=== PATIENT | male | born 1960 | race Caucasian/White ===

== ENCOUNTER 2017-05-20 15:32 | Inpatient (IN) | payer OTHER ==
[~2017-05-20] VITALS: Ht 177.8 cm; Wt 140.0 kg
[~2017-05-20 15:32] MED LIST: AMLODIPINE BESYL5 MG PO; ANTIVERT25 MG PO; ASPIR 8181 M1 PO; ASPIRIN325 MG PO; ASPIRIN81 M2 PO; ATORVASTATIN CA20 MG PO; BUSPAR10 MG PO; CLINDAMYCIN HC300 MG PO; DIAZEPAM5 MG PO; DITROPAN5 MG PO; DOK PLUS TABLE1 EACH PO; ENOXAPARIN40 MG/0.4 SC; HYZAAR 100-21 TABLET PO; K-DUR20 MEQ PO; LIPITOR40 MG PO; LOSARTAN-HCTZ1 EAC1 PO; MECLIZINE HCL25 MG PO; NICODERM CQ1 EAC1 TD; NORVASC5 MG PO; PLAVIX75 MG PO; RANITIDINE HCL150 MG PO; RANITIDINE HCL300 MG PO; VIIBRYD40 MG PO
[2017-05-20 17:28] LABS: EOSINOPHIL (%) 1.1 % (0-5); EOSINOPHIL COUNT 0.1 K/uL (0-0.3); HEMATOCRIT 47.7 % (38.0-50.0); IMMATURE GRANULOCYTE (%) 0.2 % (0.0-0.7); INSTRUMENT ABS NEUTROPHIL CT 4.5 K/uL; LYMPHOCYTE COUNT 3.2 K/uL (1.0-2.8); MCH 27.8 PG (29.0-34.0); MCHC 32.3 G/DL (30.0-36.0); MCV 86.1 FL (86-99); MEAN PLAT.VOLUME 10.6 uM^3 (9.0-12.4); MONOCYTE (%) 10.8 % (3-12); MONOCYTE COUNT 0.9 K/uL (0-0.8); NEUTROPHIL (%) 51.1 % (45-76); NEUTROPHIL COUNT 4.5 K/uL (1.8-6.4); PLATELET COUNT 227 K/uL (156-360); RBC DIS.WIDTH-CV 13.5 % (11.8-14.6); RBC DIS.WIDTH-SD 42.5 % (39-53); RED BLOOD COUNT 5.54 M/uL (4.00-5.50); WHITE BLOOD COUNT 8.7 K/uL (4.1-10.2)
[2017-05-20 17:37] LABS: CHLORIDE 105 mEq/L (99-109); POTASSIUM 3.7 mEq/L (3.7-5.4); SODIUM 143 mEq/L (136-147)
[2017-05-20 17:38] LABS: GLUCOSE 95 mg/dL (70-99)
[2017-05-20 17:40] LABS: ANION GAP 10 MEQ/L (2-14)
[2017-05-20 17:42] LABS: GFR ESTIMATE (CALCULATED) 56 mL/min/; INTER. NORMALIZED RATIO 1.1; PROTHROMBIN TIME 11.4 (9.2-11.2); PTT 26.8 (25-32)
[2017-05-20 17:43] LABS: UREA NITROGEN (BUN) 15 mg/dL (9-23)
[2017-05-20 18:14] LABS: HDL CHOLESTEROL 22 MG/DL (Desirable>=40); LDL CHOLESTEROL 41 mg/dL (Desirable<100); NON-HDL CHOLESTEROL 72 mg/dL (Desirable<160); SAMPLE HEMOLYSIS CHECK 0; SAMPLE ICTERIC CHECK 0; SAMPLE LIPEMIA CHECK 0; TOTAL CHOLESTEROL 94 mg/dL (Desirable<200); TRIGLYCERIDES 156 MG/DL (Normal: <150)
[2017-05-20 18:24] LABS: Estimated Average Glucose 128 mg/dL (70-123); HEMOGLOBIN A1c (GLYCOHEMOGLOB) 6.1 % HGB (Below 5.7)
[2017-05-20] MEDS ORDERED: antibiotic PO (19:23)
[2017-05-20] MEDS ORDERED: OXYBUTYNIN CHLO10 MG PO (19:24)
[2017-05-20 21:45] LABS: SERUM ETHYL ALCOHOL < 10 mg/dL
[2017-05-20 22:05] VITALS: BP 145/86
[2017-05-21 03:41] VITALS: BP 168/98
[2017-05-21 05:39] LABS: HEMATOCRIT 45.3 % (38.0-50.0); MCH 28.7 PG (29.0-34.0); MCHC 33.3 G/DL (30.0-36.0); MCV 86.1 FL (86-99); MEAN PLAT.VOLUME 11.1 uM^3 (9.0-12.4); PLATELET COUNT 214 K/uL (156-360); RBC DIS.WIDTH-CV 13.8 % (11.8-14.6); RBC DIS.WIDTH-SD 43.4 % (39-53); RED BLOOD COUNT 5.26 M/uL (4.00-5.50); WHITE BLOOD COUNT 7.3 K/uL (4.1-10.2)
[2017-05-21 06:34] LABS: ALKALINE PHOSPHATASE 98 IU/L (3-129); ANION GAP 8 MEQ/L (2-14); CHLORIDE 106 MEQ/L (99-109); GFR ESTIMATE (CALCULATED) > 59 mL/min/; GLUCOSE 103 mg/dL (70-99); POTASSIUM 3.8 MEQ/L (3.7-5.4); SAMPLE HEMOLYSIS CHECK 0; SAMPLE ICTERIC CHECK 0; SAMPLE LIPEMIA CHECK 0; SODIUM 143 MEQ/L (136-147); TOTAL BILIRUBIN 0.6 MG/DL (0.0-1.0); UREA NITROGEN (BUN) 15 mg/dL (9-23)
[2017-05-21 07:29] LABS: ADD MIUA? NO; BILIRUBIN NEGATIVE; BLOOD NEGATIVE; COLOR YELLOW ((YELLOW)); GLUCOSE (STRIP) NEGATIVE; KETONES NEGATIVE; LEUKOCYTES NEGATIVE; NITRITE NEGATIVE; PROTEIN (STRIP) NEGATIVE; SPECIFIC GRAVITY 1.019 (1.000-1.030); UROBILINOGEN 0.2 MG/DL (0.2-1.0)
[2017-05-21 08:17] VITALS: BP 171/94
[2017-05-21 11:24] VITALS: BP 148/98
[2017-05-21 17:22] VITALS: BP 161/105
[2017-05-21 20:13] VITALS: BP 130/77
[2017-05-21 23:50] VITALS: BP 163/83
[2017-05-22 03:56] VITALS: BP 174/96
[2017-05-22 08:22] VITALS: BP 174/98
[2017-05-22 11:29] VITALS: BP 147/80
[2017-05-22] MEDS ORDERED: NICOTINE PATCH1 EAC1 TD (13:30)
[2017-05-22] MEDS ORDERED: LO-DOSE ASPIRIN81 M2 PO (13:33)
== END 2017-05-22 14:55 | disposition home or self-care (01) | DRG 65 ==
LOC: EME 15:32 → 5SOUTH 20:18 → EDOF 20:18 → 5SOUTH 21:38
PROVIDERS: Emergency Medicine; Hospitalist
DX: I63.9 Cerebral infarction, unspecified (principal); N17.9 Acute kidney failure, unspecified; Z68.41 Body mass index [BMI] 40.0-44.9, adult; M51.37 Other intervertebral disc degeneration, lumbosacral region; H54.7 Unspecified visual loss; I10 Essential (primary) hypertension; E78.5 Hyperlipidemia, unspecified; E87.6 Hypokalemia; E66.01 Morbid (severe) obesity due to excess calories; F17.200 Nicotine dependence, unspecified, uncomplicated; N39.41 Urge incontinence; G47.33 Obstructive sleep apnea (adult) (pediatric); Z86.73 Personal history of transient ischemic attack (TIA), and cerebral infarction without residual deficits; Z79.899 Other long term (current) drug therapy; Z79.02 Long term (current) use of antithrombotics/antiplatelets
CPT/HCPCS: 70450; 70551; 71020; 72110; 80048; 80053; 80061; 81003; 83036; 85025; 85027; 85610; 85730; 92523 GN; 93005; 93880; 94660; 94799; 99281; 99285; G0480; J1644; J2270; J7030; J7120